=== PATIENT | male | born 1960 | race Caucasian/White ===

== ENCOUNTER 2022-10-04 11:07 | Outpatient (CLI) | payer BC ==
[~2022-10-04 11:07] MED LIST: BARIUM SULFATE 340 ML SUSP.RECON***PROCEDURE AREA ONLY**DONT ENTER PO ONE; SIMETHICONE/SOD BICARB/CIT AC PACKET PO ONE
== END 2022-10-04 23:59 | disposition home or self-care (01) ==
LOC: RAD 11:07
PROVIDERS: ATTEND Surgery
DX: K22.70 Barrett's esophagus without dysplasia (principal); K44.9 Diaphragmatic hernia without obstruction or gangrene; K21.9 Gastro-esophageal reflux disease without esophagitis
CPT/HCPCS: 74220